=== PATIENT | female | born 1965 | race Caucasian/White ===

== ENCOUNTER 2017-05-09 16:26 | Outpatient (CLI) | payer BC | END 2017-05-09 19:54 | disposition home or self-care (01) | LOC: SMA 16:26 | PROVIDERS: ATTEND Family Medicine | DX: Z12.31 Encounter for screening mammogram for malignant neoplasm of breast (principal) | CPT/HCPCS: 77067 ==

== ENCOUNTER 2018-07-16 08:45 | Outpatient (CLI) | payer BC | END 2018-07-16 21:03 | disposition home or self-care (01) | LOC: SMA 08:45 | PROVIDERS: ATTEND Family Medicine | DX: Z12.31 Encounter for screening mammogram for malignant neoplasm of breast (principal) | CPT/HCPCS: 77067 ==

== ENCOUNTER 2019-07-20 09:03 | Outpatient (CLI) | payer BC | END 2019-07-20 20:59 | disposition home or self-care (01) | LOC: SMA 09:03 | PROVIDERS: ATTEND Family Medicine | DX: Z12.31 Encounter for screening mammogram for malignant neoplasm of breast (principal) | CPT/HCPCS: 77067 ==

== ENCOUNTER 2020-08-18 08:32 | Outpatient (CLI) | payer BC | END 2020-08-18 19:30 | disposition home or self-care (01) | LOC: SMA 08:32 | PROVIDERS: ATTEND Family Medicine | DX: Z12.31 Encounter for screening mammogram for malignant neoplasm of breast (principal) | CPT/HCPCS: 77067 ==

== ENCOUNTER 2021-01-11 08:24 | Outpatient (CLI) | payer BC | END 2021-01-11 19:46 | disposition home or self-care (01) | LOC: SUS 08:24 | PROVIDERS: ATTEND Family Medicine | DX: R92.2 Inconclusive mammogram (principal) | CPT/HCPCS: 76641 ==